=== PATIENT | male | born 1975 | race Caucasian/White ===

== ENCOUNTER → 2020-09-17 | Outpatient (CLI) | payer BC ==
--- NOTE | 2020-09-18 11:41 | RAD ---
XR SHOULDER_LEFT 2+ VIEWS History: Reason: LEFT SHOULDER PAIN / Spl. Instructions: / History: Technique: 3 views left shoulder Comparison: None. Findings: Normal alignment of the glenohumeral and acromioclavicular joints. No fracture. Impression: 1. No acute osseous abnormality. Electronically signed by: Henry Marino DO (09/18/2020 11:38 AM) [id number]
== END ==
LOC: RAD 16:41
PROVIDERS: ATTEND Orthopaedic Surgery
DX: M25.512 Pain in left shoulder (principal)
CPT/HCPCS: 73030